=== PATIENT | female | born 1950 | race Caucasian/White ===

== ENCOUNTER → 2016-08-23 | Outpatient (CLI) | payer MEDICARE, BC ==
--- NOTE | 2016-08-23 15:37 | BD ---
EXAMINATION TYPE: MG DEXA axial skeleton. DATE OF EXAM: 08/23/2016 2:23 PM CLINICAL HISTORY: Height: 62.5 Weight: 147 FRAX RISK QUESTIONS: Alcohol (3 or more units per day): no Family History (Parent hip fracture): no Glucocorticoids (More than 3mos): no (Ex: prednisone, prednisolone, methylprednisolone, dexamethasone, and hydrocortisone). History of Fracture in Adulthood: yes Secondary Osteoporosis: 1. Type 1 Diabetes: no 2. Hyperthyroidism: no 3. Menopause before 45: no 4. Malnutrition: no 5. Chronic liver disease: no Rheumatoid Arthritis: no Current Tobacco Use: not now, quit about 1990 RISK FACTORS HISTORY OF: History of Wrist Fracture: yes When: 1996 Family History of Osteoporosis: not that patient is aware of Drink Alcohol: NO Active: yes Diet low in dairy products/other sources of calcium: no Postmenopausal woman: yes Take estrogen and/or progesterone medications: no Lost more than 2 inches in height since high school: no Frequent falls: no Poor Health: no Hyperparathyroidism: no Adrenal Insufficiency: no MEDICATIONS: Prednisone or other steroids: no Thyroid Medications: no Osteoporosis Medications: no Additional Medications: Vitamin D, blood pressure meds for heart rate Additional History: total knee replacement May 2016 EXAM MEASUREMENTS: Bone mineral densitometry was performed using the [employer] System. Bone mineral density as measured about the Lumbar spine is: ----- L1-L4(G/cm2): 0.906 T Score Values are as follows: ----- L2: -2.7 ----- L3: -2.0 ----- L4: -1.7 ----- L1-L4: -2.3 Bone mineral density has: Decreased -3.5% since study of: 05/29/2014 Bone mineral density about the R hip (g/cm2): 0.757 Bone mineral density about the L hip (g/cm2): 0.678 T Score values are as follows: -----R Neck: -2.0 -----L Neck: -2.6 -----R Total: -1.1 -----L Total: -1.9 Bone mineral density has: Decreased -7.0% since study of: 05/29/2014 IMPRESSION: Osteoporosis (T Score less than -2.5) as noted by T Score values at the L2 & Left hip There is increased fracture risk and therapy is usually indicated based on age. Re-Screen 1-2 years. NOTE: T-SCORE=SD OF THE YOUNG ADULT MEAN.
--- NOTE | 2016-08-25 09:50 | MM ---
Reason for exam: screening (asymptomatic). Last mammogram was performed 1 year and 2 months ago. History: Patient is postmenopausal and had first child at age 33. Family history of breast cancer in paternal cousin and breast cancer in paternal aunt at age 36. Benign cyst aspiration of the left breast. Physical Findings: A clinical breast exam by your physician is recommended on an annual basis and results should be correlated with mammographic findings. MG 3D Screening Mammo W/Cad Bilateral CC and MLO view(s) were taken. Prior study comparison: July 03, 2015, bilateral MG screening mammo w CAD. May 29, 2014, bilateral MG screening mammo w CAD. March 16, 2013, bilateral digital screening mammo w/CAD. The breast tissue is heterogeneously dense. This may lower the sensitivity of mammography. 6 o'clock left breast central nodular asymmetry not clearly seen previously. ASSESSMENT: Incomplete: need additional imaging evaluation, BI-RAD 0 RECOMMENDATION: Special view mammogram and ultrasound of the left breast. [facility] will attempt to contact patient to return for supplemental views and ultrasound. QUIANA
== END | disposition home or self-care (01) ==
LOC: RADMAMWWP 13:47
PROVIDERS: ATTEND Obstetrics & Gynecology
DX: Z12.31 Encounter for screening mammogram for malignant neoplasm of breast (principal); M81.0 Age-related osteoporosis without current pathological fracture; Z78.0 Asymptomatic menopausal state
CPT/HCPCS: 77080; 77063; G0202

== ENCOUNTER → 2016-09-03 | Outpatient (CLI) | payer MEDICARE, BC ==
--- NOTE | 2016-09-03 10:14 | MM ---
Reason for exam: additional evaluation requested from abnormal screening. Last mammogram was performed less than 1 month ago. History: Patient is postmenopausal and had first child at age 33. Family history of breast cancer in paternal cousin and breast cancer in paternal aunt at age 36. Benign cyst aspiration of the left breast. Physical Findings: Nurse did not find any significant physical abnormalities on exam. MG 3D Work Up W/Cad LT LM view(s) were taken of the left breast. Prior study comparison: August 23, 2016, bilateral MG 3d screening mammo w/cad. July 03, 2015, bilateral MG screening mammo w CAD. There are scattered fibroglandular densities. Finding: There is a 7.6 mm equal density (isodense), oval mass located 6 cm from the skin in the left breast. New finding since August 23, 2016 and July 03, 2015. These results were verbally communicated with the patient and result sheet given to the patient on 09/03/16. ASSESSMENT: Probably benign, BI-RAD 3 RECOMMENDATION: Follow-up diagnostic mammogram of the left breast in 6 months.
--- NOTE | 2016-09-03 10:16 | USB ---
Reason for exam: additional evaluation requested from abnormal screening. History: Patient is postmenopausal and had first child at age 33. Family history of breast cancer in paternal cousin and breast cancer in paternal aunt at age 36. Benign cyst aspiration of the left breast. US Breast Workup Limited LT Left breast ultrasound demonstrates a 0.5 x 0.4 x 0.4cm oval, cystic lesion at 6 o'clock. These results were verbally communicated with the patient and result sheet given to the patient on 09/03/16. ASSESSMENT: Probably benign, BI-RAD 3 RECOMMENDATION: Ultrasound of the left breast in 6 months.
== END | disposition home or self-care (01) ==
LOC: RADMAMWWP 08:40
PROVIDERS: ATTEND Obstetrics & Gynecology
DX: R92.8 Other abnormal and inconclusive findings on diagnostic imaging of breast (principal)
CPT/HCPCS: 76642; G0206; G0279

== ENCOUNTER → 2017-08-02 | Outpatient (CLI) | payer MEDICARE, BC ==
[2017-08-02 13:31] LABS: Calcium 9.8 mg/dL (8.4-10.2)
--- NOTE | 2017-08-02 14:57 | MR ---
EXAMINATION TYPE: MR brain wo/w con DATE OF EXAM: 08/02/2017 COMPARISON: MRI brain January 21, 2015 HISTORY: Malignant melanoma of skin of left foot TECHNIQUE: Multiplanar, multisequence images of the brain and brainstem is performed without and with IV contras t, utilizing 6.5 mL intravenous Gadavist . FINDINGS: Diffusion weighted images demonstrate no evidence of a recent infarct or other diffusion ab normality. There is no extra-axial fluid collection or significant white matter signal abnormality. Occasional focus of T2 hyperintensity in the white matter is redemonstrated, less than 6 lesions are seen. For reference there is 4 mm lesion left frontal lobe axial image 17 redemonstrated felt stable . The ventricular system and cisternal spaces are normal in size and appearance. The brain volume is age appropriate. Midline structures demonstrate normal morphology. The craniocervical junction appears within normal limits. Post contrast images demonstrate persistent enhancing left vestibulocochlear lesion axial im age 8 felt stable accounting for technical differences no new suspicious enhancing parenchymal lesion s are present. The dural venous sinuses appear patent. The visualized sinuses are clear and the globe s are intact. IMPRESSION: No new suspicious enhancing intraparenchymal lesions identified to suggest new metastatic disease to the brain. Stable small left-sided acoustic neuroma and minimal white matter changes like ly on basis of product of chronic small vessel ischemic change.
--- NOTE | 2017-08-02 16:05 | CT ---
EXAMINATION TYPE: CT ChestAbdPelvis w con DATE OF EXAM: 08/02/2017 COMPARISON: NONE HISTORY: 66-year-old female Malignant melanoma of skin on left foot. Metastatic lymph node to the lef t groin status post excision. TECHNIQUE: Contiguous axial scanning of the chest, abdomen, and pelvis performed with IV Contrast, pa tient injected with 100 mL of Isovue 300. Delayed images through the kidneys were obtained. Coronal/s agittal reconstructions performed. CT DLP: 618.60 mGycm Automated exposure control for dose reduction was used. FINDINGS: Chest: Heart is normal size without pericardial effusion. Aorta normal caliber with conventional arch vessel branching anatomy. No thoracic lymphadenopathy by CT size criteria. Evaluation of the lungs shows mild dependent atelectasis. There is a vague 1.4 cm groundglass nodule in the right upper lobe axial image 18 No consolidation or pleural effusion. ABDOMEN: No focal liver lesion or biliary ductal dilatation. Portal venous system is patent. Gallbladder, right adrenal gland, right kidney, spleen, and pancreas appear within normal limits. There is 1.4 cm nodularity of the left adrenal gland which is nonspecific. A couple punctate 2 mm nonobstructive calculi in the lower pole left kidney. Symmetric uptake and exc retion of contrast from both kidneys. The graft no dilated small bowel, free fluid, or free air. No m esenteric or retroperitoneal lymphadenopathy. Moderate stool burden without pericolonic inflammatory change. Redundant sigmoid colon. Mild atherosc lerotic calcifications within the abdominal aorta and iliac arteries. Tiny fatty umbilical hernia. Pelvis: Bladder urine distended. Uterus and small ovaries are are demonstrated. No pelvic lymphadenopathy see n. A 2.8 cm fluid collection in the left inguinal region with adjacent surgical clip. Nonspecific 6 mm n onenlarged left inguinal lymph node laterally and just superiorly to the fluid collection. Bones: Degenerative changes lumbar spine. No osseous destructive process. IMPRESSION: 1. POSTOPERATIVE LYMPHOCELE OR SEROMA IN THE LEFT GROIN MEASURING 2.8 CM. THERE IS A SMALL 6 MM LYMPH NODE JUST ADJACENT SUPERIORLY AND LATERALLY THAT IS NONSPECIFIC. 2. A VAGUE 1.4 CM GROUNDGLASS NODULE IN THE RIGHT UPPER LOBE IS ALSO NONSPECIFIC. THREE-MONTH FOLLOW- UP RECOMMENDED TO EXCLUDE THE POSSIBILITY OF METASTATIC DISEASE. 3. A 1.4 CM NODULE OF THE LEFT ADRENAL GLAND STATISTICALLY REPRESENTS A BENIGN ADRENAL ADENOMA. THIS SHOULD ALSO BE REASSESSED AT THE PATIENT'S THREE-MONTH FOLLOW-UP. 4. NO OTHER SUSPICIOUS FINDINGS TO SUGGEST METASTATIC DISEASE.
== END | disposition home or self-care (01) ==
LOC: RADMRIMAIN 12:44
PROVIDERS: ATTEND Surgery
DX: D33.3 Benign neoplasm of cranial nerves (principal); R90.89 Other abnormal findings on diagnostic imaging of central nervous system; D35.02 Benign neoplasm of left adrenal gland; C43.72 Malignant melanoma of left lower limb, including hip; Z98.890 Other specified postprocedural states
CPT/HCPCS: 80048; 71260; 74177; 36415; 70553; A9581; Q9967

== ENCOUNTER → 2017-09-19 | Outpatient (CLI) | payer MEDICARE, BC ==
--- NOTE | 2017-09-21 10:17 | MM ---
Reason for exam: screening (asymptomatic). Last mammogram was performed 1 year and 1 month ago. History: Patient is postmenopausal and had first child at age 33. Family history of breast cancer in paternal cousin and breast cancer in paternal aunt at age 36. Benign cyst aspiration of the left breast. Physical Findings: A clinical breast exam by your physician is recommended on an annual basis and results should be correlated with mammographic findings. MG 3D Screening Mammo W/Cad Bilateral CC and MLO view(s) were taken. Prior study comparison: September 03, 2016, left breast MG 3d work up w/cad LT. August 23, 2016, bilateral MG 3d screening mammo w/cad. The breast tissue is heterogeneously dense. This may lower the sensitivity of mammography. Benign appearing bilateral calcifications. No suspicious abnormality. No significant changes when compared with prior studies. ASSESSMENT: Benign, BI-RAD 2 RECOMMENDATION: Routine screening mammogram of both breasts in 1 year.
== END | disposition home or self-care (01) ==
LOC: RADMAMWWP 12:28
PROVIDERS: ATTEND Obstetrics & Gynecology
DX: Z12.31 Encounter for screening mammogram for malignant neoplasm of breast (principal)
CPT/HCPCS: 77063; 77067

== ENCOUNTER → 2018-08-22 | Outpatient (CLI) | payer MEDICARE ==
--- NOTE | 2018-08-22 14:20 | US ---
EXAMINATION TYPE: US pelvis complete transvag DATE OF EXAM: 08/22/2018 COMPARISON: Ct 08/02/2017 CLINICAL HISTORY: Left Pelvic Mass R19.09,R19.00 Left Pelvic mass. TECHNIQUE: Transabdominal sonographic images of the pelvis were acquired. Transvaginal sonographic i mages were medically necessary to better assess the following anatomy: Uterus Date of LMP: Around 1998 EXAM MEASUREMENTS: Uterus: 5.1 x 2.4 x 3.8 cm Endometrial Stripe: 0.2 cm Right Ovary: Not visualized Left Ovary: Not visualized 1. Uterus: Anteverted wnl 2. Endometrium: wnl 3. Right Ovary: Not visualized 4. Left Ovary: Not visualized 5. Bilateral Adnexa: Obscured by large amount of peristalsing bowel visualized bilaterally 6. Posterior cul-de-sac: wnl IMPRESSION: The adnexa and ovaries are obscured by a large amount of bowel. Uterus and endometrium ap pear within normal limits. No pelvic masses seen on the CT dated 08/02/2017.
== END | disposition home or self-care (01) ==
LOC: RADUSWWP 13:26
PROVIDERS: ATTEND Obstetrics & Gynecology
DX: R19.00 Intra-abdominal and pelvic swelling, mass and lump, unspecified site (principal)
CPT/HCPCS: 76830; 76856

== ENCOUNTER → 2019-04-26 | Outpatient (CLI) | payer MEDICARE ==
[2019-04-26 11:27] LABS: Basophils # (A) 0.1 k/uL (0-0.2); Basophils % (A) 2 %; Eosinophils # (A) 0.1 k/uL (0-0.7); Eosinophils % (A) 3 %; HCT 44.2 % (34.0-46.0); HGB 14.1 gm/dL (11.4-16.0); Lymphocytes # (A) 1.5 k/uL (1.0-4.8); Lymphocytes % (A) 39 %; MCH 30.8 pg (25.0-35.0); MCV 96.2 fL (80.0-100.0); Mean Platelet Volume 7.6; Monocytes # (A) 0.3 k/uL (0-1.0); Monocytes % (A) 7 %; Neutrophils # (A) 1.8 k/uL (1.3-7.7); Neutrophils % (A) 46 %; Platelet Count 284 k/uL (150-450); RBC 4.59 m/uL (3.80-5.40); WBC 3.9 k/uL (3.8-10.6)
[2019-04-26 16:38] LABS: African American GFR (CKD) 87.8 (60.0-200.0); Albumin 4.4 g/dL (3.80-4.90); Albumin/Globulin Ratio 2.44 (1.60-3.17); Anion Gap 7.5 mmol/L (4.00-12.00); BUN/Creat Ratio 23.75 Ratio (12.00-20.00); Calcium 10.3 mg/dL (8.7-10.3); Carbon Dioxide 27.5 mmol/L (21.6-31.8); Globulin 1.8 g/dL (1.6-3.3); Non-African American GFR(CKD) 75.8 (60.0-200.0); Potassium 4.3 mmol/L (3.5-5.5); Total Bilirubin 0.7 mg/dL (0.2-1.2); Total Protein 6.2 g/dL (6.2-8.2)
== END | disposition home or self-care (01) ==
LOC: LABWHC1 10:10
PROVIDERS: ATTEND Nurse Practitioner
DX: C43.72 Malignant melanoma of left lower limb, including hip (principal); C77.9 Secondary and unspecified malignant neoplasm of lymph node, unspecified; R91.8 Other nonspecific abnormal finding of lung field; Z85.820 Personal history of malignant melanoma of skin
CPT/HCPCS: 36415; 80053; 83615; 85025

== ENCOUNTER → 2019-05-01 | Outpatient (CLI) | payer MEDICARE ==
--- NOTE | 2019-05-01 15:01 | CT ---
EXAMINATION TYPE: CT chest w con DATE OF EXAM: 05/01/2019 COMPARISON: 08/02/2017 HISTORY: Abnormal findings on lung imaging CT DLP: 233.7 mGycm Automated exposure control for dose reduction was used. CONTRAST: CT scan of the chest is performed with IV Contrast, patient injected with 100 mL of Isovue 300. FINDINGS: LUNGS: Stable groundglass nodule right upper lobe measuring 1.4 cm versus 1.4 cm. No additional nodul es identified. No pleural effusion or volume loss. No infiltrate or mass. MEDIASTINUM: There are no greater than 1 cm hilar or mediastinal lymph nodes. No pericardial effusi on is seen. Thoracic aorta is of normal caliber. The heart is not enlarged. UPPER ABDOMEN: No significant abnormality appreciated. OTHER: No additional significant abnormality is seen. IMPRESSION: 1.Stable groundglass nodule right upper lobe measuring 1.4 cm versus 1.4 cm. Stability over a two-yea r timeframe should be documented radiographically.
== END | disposition home or self-care (01) ==
LOC: RADCTMAIN 13:26
PROVIDERS: ATTEND Surgery
DX: R91.1 Solitary pulmonary nodule (principal); C77.9 Secondary and unspecified malignant neoplasm of lymph node, unspecified; C43.72 Malignant melanoma of left lower limb, including hip; Z85.820 Personal history of malignant melanoma of skin
CPT/HCPCS: 71260; Q9967

== ENCOUNTER → 2019-10-25 | Outpatient (CLI) | payer MEDICARE ==
--- NOTE | 2019-11-01 09:42 | MM ---
Reason for exam: screening (asymptomatic). Last mammogram was performed 1 year and 1 month ago. History: Patient is postmenopausal and had first child at age 33. Family history of breast cancer in paternal cousin and breast cancer in paternal aunt at age 36. Benign cyst aspiration of the left breast. Physical Findings: A clinical breast exam by your physician is recommended on an annual basis and results should be correlated with mammographic findings. MG 3D Screening Mammo W/Cad Bilateral CC and MLO view(s) were taken. Prior study comparison: September 26, 2018, bilateral MG 3d screening mammo w/cad. September 19, 2017, bilateral MG 3d screening mammo w/cad. The breast tissue is heterogeneously dense. This may lower the sensitivity of mammography. No significant changes when compared with prior studies. ASSESSMENT: Negative, BI-RAD 1 RECOMMENDATION: Routine screening mammogram of both breasts in 1 year.
== END | disposition home or self-care (01) ==
LOC: RADMAMWWP 14:31
PROVIDERS: ATTEND Obstetrics & Gynecology
DX: Z12.31 Encounter for screening mammogram for malignant neoplasm of breast (principal)
CPT/HCPCS: 77063; 77067

== ENCOUNTER → 2020-12-02 | Outpatient (CLI) | payer MEDICARE ==
--- NOTE | 2020-12-02 17:45 | BD ---
EXAMINATION TYPE: Axial Bone Density DATE OF EXAM: 12/02/2020 COMPARISON: NONE CLINICAL HISTORY: Height: 5 FT 2 IN Weight: 158 FRAX RISK QUESTIONS: Alcohol (3 or more units per day): NO Family History (Parent hip fracture): NO Glucocorticoids (More than 3mos): NO (Ex: prednisone, prednisolone, methylprednisolone, dexamethasone, and hydrocortisone). History of Fracture in Adulthood: YES Secondary Osteoporosis: 1. Type 1 Diabetes: NO 2. Hyperthyroidism: NO 3. Menopause before 45: NO 4. Malnutrition: NO 5. Chronic liver disease: NO Rheumatoid Arthritis: NO Current Tobacco Use: FORMER RISK FACTORS HISTORY OF: History of Wrist Fracture: LEFT WRIST When: AGE 46 Family History of Osteoporosis: NO Active: YES Diet low in dairy products/other sources of calcium: NO Postmenopausal woman: AGE 49 Take estrogen and/or progesterone medications: NO Lost more than 2 inches in height since high school: YES MEDICATIONS: Additional Medications: METOPROLOL, Additional History: MELANOMA EXAM MEASUREMENTS: Bone mineral densitometry was performed using the [employer] System. Bone mineral density as measured about the Lumbar spine is: ----- L1-L4(G/cm2): 0.886 T Score Values are as follows: ----- L2: -3.1 ----- L3: -1.3 ----- L4: -2.4 ----- L1-L4: -2.5 Bone mineral density has: DECREASED -0.3 % since study of: 2018 Bone mineral density about the R hip (g/cm2): 0.730 Bone mineral density about the L hip (g/cm2): 0.673 T Score values are as follows: -----R Neck: -2.2 -----L Neck: -2.6 -----R Total: -1.4 -----L Total: -1.7 Bone mineral density has: INCREASED 0.5 % since study of: 2018 IMPRESSION: Osteopenia (T Score between -2.5 and -1). There is slightly increased risk of fracture and the patient may be considered for treatment. Re-Screen 2-5 years. NOTE: T-SCORE=SD OF THE YOUNG ADULT MEAN.
--- NOTE | 2020-12-03 13:59 | MM ---
Reason for exam: screening (asymptomatic). Last mammogram was performed 1 year and 1 month ago. History: Patient is postmenopausal, has history of other cancer at age 67, and had first child at age 33. Family history of breast cancer in paternal cousin and breast cancer in paternal aunt at age 36. Benign cyst aspiration of the left breast. Physical Findings: A clinical breast exam by your physician is recommended on an annual basis and results should be correlated with mammographic findings. MG 3D Screening Mammo W/Cad Bilateral CC and MLO view(s) were taken. Prior study comparison: October 25, 2019, bilateral MG 3d screening mammo w/cad. September 26, 2018, bilateral MG 3d screening mammo w/cad. The breast tissue is heterogeneously dense. This may lower the sensitivity of mammography. Stable benign calcifications. There is no discrete abnormality. No significant changes when compared with prior studies. ASSESSMENT: Benign, BI-RAD 2 RECOMMENDATION: Routine screening mammogram of both breasts in 1 year.
== END | disposition home or self-care (01) ==
LOC: RADMAMWWP 09:31
PROVIDERS: ATTEND Obstetrics & Gynecology
DX: Z12.31 Encounter for screening mammogram for malignant neoplasm of breast (principal); M85.89 Other specified disorders of bone density and structure, multiple sites; Z78.0 Asymptomatic menopausal state; Z85.820 Personal history of malignant melanoma of skin; Z80.3 Family history of malignant neoplasm of breast
CPT/HCPCS: 77063; 77067; 77080

== ENCOUNTER → 2021-12-03 | Outpatient (CLI) | payer MEDICARE ==
--- NOTE | 2021-12-04 08:36 | MM ---
Reason for Exam: Screening (asymptomatic). Last mammogram was performed 1 year(s) and 1 month(s) ago. Patient History: Menarche at age 10. First Full-Term at age 33. Late child-bearing (after 30). Postmenopausal. Other cancer, age 67. Benign Cyst Aspiration on the left side. Paternal cousin had breast cancer. Paternal aunt had breast cancer, age 36. Risk Values: Maren 5 year model risk: 2.6%. NCI Lifetime model risk: 7.2%. Prior Study Comparison: 09/03/2016 Left Diagnostic Mammogram, [facility]. 09/19/2017 Bilateral Screening Mammogram, [facility]. 09/26/2018 Bilateral Screening Mammogram, [facility] 10/25/2019 Bilateral Screening Mammogram, [facility]. 12/02/2020 Bilateral Screening Mammogram, [facility]. Tissue Density: There are scattered fibroglandular densities. Findings: Analyzed By CAD. Benign spherical calcifications are present bilaterally. No suspicious groups of microcalcifications, spiculated or lobular masses, architectural distortion or other secondary signs of malignancy are mammographically apparent. Overall Assessment: Benign, BI-RAD 2 Management: Screening Mammogram of both breasts in 1 year. A negative mammogram report should not preclude additional follow up of suspicious palpable abnormalities. Patient should continue monthly self breast exam. A clinical breast exam by your physician is recommended on an annual basis and results should be correlated with mammographic findings. Electronically signed and approved by: Alvino Nielson D.O. Radiologis
== END | disposition home or self-care (01) ==
LOC: RADMAMWWP 12:58
PROVIDERS: ATTEND Obstetrics & Gynecology
DX: Z12.31 Encounter for screening mammogram for malignant neoplasm of breast (principal); Z78.0 Asymptomatic menopausal state; Z80.3 Family history of malignant neoplasm of breast
CPT/HCPCS: 77063; 77067

== ENCOUNTER → 2022-12-07 | Outpatient (CLI) | payer MEDICARE ==
--- NOTE | 2022-12-07 21:33 | BD ---
EXAMINATION TYPE: Axial Bone Density DATE OF EXAM: 12/07/2022 CLINICAL HISTORY: 72 years old Female. ICD-10 CODE: M85.88 DISORDER OF BONE Height: 62 Weight: 147.8 FRAX RISK QUESTIONS: Alcohol (3 or more units per day): no Family History (Parent hip fracture): no Glucocorticoids (More than 3mos): no History of Fracture in Adulthood: yes Secondary Osteoporosis: 1. Type 1 Diabetes: no 2. Hyperthyroidism: no 3. Menopause before 45: no 4. Malnutrition: no 5. Chronic liver disease: no Rheumatoid Arthritis: no Current Tobacco Use: no RISK FACTORS HISTORY OF: Hip Fracture (Right/Left): no Spine Fracture: no History of Wrist Fracture: Lt Wrist When: age 47 Surgery to Spine/Hip(right/left)/Wrist (right/left): no Family History of Osteoporosis: no Active: yes Diet low in dairy products/other sources of calcium: yes Postmenopausal woman: yes Take estrogen and/or progesterone medications: no Lost more than 2 inches in height since high school: yes Frequent falls: no Poor Health: no Hyperparathyroidism: no Adrenal Insufficiency: no MEDICATIONS: Prednisone or other steroids: no Thyroid Medications: no Osteoporosis Medications: no Additional Medications: BP Meds, Vit D, Fish Oil., Magnesium, Potassium, Additional History: EXAM MEASUREMENTS: Bone mineral densitometry was performed using the [employer] System. Bone mineral density as measured about the Lumbar spine is: ----- L1-L4(G/cm2): 0.837 T Score Values are as follows: ----- L1: -3.3 ----- L2: -3.0 ----- L3: -1.9 ----- L4: -3.4 ----- L1-L4: -2.9 Z Score Values are as follows: ----- L1: -1.7 ----- L2: -1.3 ----- L3: -0.2 ----- L4: -1.7 ----- L1-L4: -1.2 Bone mineral density has: decreased -5.5 % since study of: 12/02/2020 Bone mineral density about the R hip (g/cm2): 0.794 Bone mineral density about the L hip (g/cm2): 0.758 T Score values are as follows: -----R Neck: -2.5 -----L Neck: -2.6 -----R Total: -1.7 -----L Total: -2.0 Z Score values are as follows: -----R Neck: -0.8 -----L Neck: -0.9 -----R Total: -0.2 -----L Total: -0.4 Bone mineral density has: decreased -4.3 % since study of: 12/02/2020 FRAX%s: The graph provided illustrates a 25.3% chance for a major osteoporotic fx and a 7.4% chance f or the hips probability for fx in 10 years time. IMPRESSION: Osteoporosis (T Score less than -2.5). There is increased fracture risk and therapy is usually indicated based on age. Re-Screen 1-2 years. NOTE: T-SCORE=SD OF THE YOUNG ADULT MEAN.
--- NOTE | 2022-12-08 13:09 | MM ---
Reason for Exam: Screening (asymptomatic). Last screening mammogram was performed 12 month(s) ago. Patient History: Menarche at age 10. First Full-Term at age 33. Late child-bearing (after 30). Postmenopausal. Other cancer, age 67. Benign Cyst Aspiration on the left side. Paternal cousin had breast cancer. Paternal aunt had breast cancer, age 36. Paternal cousin had breast cancer at or over age 50. Paternal cousin had breast cancer at or over age 50. Risk Values: Maren 5 year model risk: 2.7%. NCI Lifetime model risk: 6.9%. Prior Study Comparison: 08/23/2016 Bilateral Screening Mammogram, [facility]. 09/03/2016 Left Diagnostic Mammogram, [facility]. 09/19/2017 Bilateral Screening Mammogram, [facility]. 09/26/2018 Bilateral Screening Mammogram, [facility]. 10/25/2019 Bilateral Screening Mammogram, [facility]. 12/02/2020 Bilateral Screening Mammogram, [facility]. 12/03/2021 Bilateral MG 3D screening mammo w/cad, [facility]. Tissue Density: The breast tissue is heterogeneously dense. This may lower the sensitivity of mammography. Findings: Analyzed By CAD. Pattern appears symmetrical. Benign scattered calcifications are present bilaterally. No significant interval change is evident. No suspicious groups of microcalcifications, spiculated or lobular masses, architectural distortion or other secondary signs of malignancy are mammographically apparent. Overall Assessment: Benign, BI-RAD 2 Management: Screening Mammogram of both breasts in 1 year. A negative mammogram report should not preclude additional follow up of suspicious palpable abnormalities. Patient should continue monthly self breast exam. A clinical breast exam by your physician is recommended on an annual basis and results should be correlated with mammographic findings. Electronically signed and approved by: Alvino Nielson D.O. Radiologis
== END | disposition home or self-care (01) ==
LOC: RADMAMWWP 13:00
PROVIDERS: ATTEND Obstetrics & Gynecology
DX: Z12.31 Encounter for screening mammogram for malignant neoplasm of breast (principal); M81.0 Age-related osteoporosis without current pathological fracture; M85.89 Other specified disorders of bone density and structure, multiple sites; Z78.0 Asymptomatic menopausal state; Z80.3 Family history of malignant neoplasm of breast
CPT/HCPCS: 77063; 77067; 77080

== ENCOUNTER → 2023-07-27 | Outpatient (CLI) | payer MEDICARE ==
--- NOTE | 2023-07-27 14:47 | US ---
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 Bilateral ureteral jets are seen. exam limited by bowel IMPRESSION: 1. There is a small hypoechoic lesion which does not meet the criteria of a simple cyst measuring 2.2 cm upper pole right kidney. Not seen on the previous CT scan of 2018. Recommend follow-up CT of the abdomen for further assessment. 2. No hydronephrosis. There is a 4 mm nonobstructing left renal stone. 3. There is a small amount of debris in the bladder which could be postinfectious correlate with urin alysis.
== END | disposition home or self-care (01) ==
LOC: RADUSWWP 13:39
PROVIDERS: ATTEND Urology
DX: N20.0 Calculus of kidney (principal); N30.21 Other chronic cystitis with hematuria
CPT/HCPCS: 76770

== ENCOUNTER → 2024-01-27 | Outpatient (CLI) | payer MEDICARE ==
--- NOTE | 2024-01-30 10:14 | MM ---
Reason for Exam: Screening (asymptomatic). Last mammogram was performed 1 year(s) and 1 month(s) ago. Patient History: Menarche at age 10. First Full-Term at age 33. Late child-bearing (after 30). Postmenopausal. Other cancer, age 67. Benign Cyst Aspiration on the left side. Paternal cousin had breast cancer. Paternal aunt had breast cancer, age 36. Paternal cousin had breast cancer at or over age 50. Paternal cousin had breast cancer at or over age 50. Risk Values: Maren 5 year model risk: 2.7%. NCI Lifetime model risk: 6.5%. Prior Study Comparison: 12/02/2020 Bilateral Screening Mammogram, [facility]. 12/03/2021 Bilateral MG 3D screening mammo w/cad, [facility]. 12/07/2022 Bilateral MG 3D screening mammo w/cad, [facility]. Tissue Density: The breasts are heterogeneously dense, which may obscure small masses. Findings: Analyzed By CAD. Right breast: There is no suspicious group of microcalcifications or new suspicious mass. Benign-appearing calcifications right breast. Left breast: There is no suspicious group of microcalcifications or new suspicious mass. Benign-appearing calcifications left breast. Overall Assessment: Benign, BI-RAD 2 Management: Screening Mammogram of both breasts in [address] [facility] will attempt to contact patient to return for supplemental views and ultrasound if indicated. Patient should continue monthly self-breast exams. A clinical breast exam by your physician is recommended on an annual basis. This exam should not preclude additional follow-up of suspicious palpable abnormalities. Note on Maren scores and lifetime risk: 1. A Maren score greater than 3% is considered moderate risk. If this is the case, consider specialist referral to assess eligibility for a risk reducing agent. 2. If overall lifetime risk for the development of breast cancer is 20% or higher, the patient may qualify for future screening with alternating mammogram and breast MRI. [facility], , 01/30/2024 10:11 AM. Electronically signed and approved by: Gurinder Kapoor DO
== END | disposition home or self-care (01) ==
LOC: RADMAMWWP 12:30
PROVIDERS: ATTEND Family Medicine
CPT/HCPCS: 77063; 77067

== ENCOUNTER → 2024-04-10 | Outpatient (CLI) | payer MEDICARE ==
[2024-04-10 10:21] LABS: African American GFR (CKD) 89 (>60 ml/min/1.73 sqM); Blood Urea Nitrogen 17 mg/dL (7-17); Non-African American GFR(CKD) 77 (>60 ml/min/1.73 sqM)
--- NOTE | 2024-04-10 15:06 | CT ---
EXAMINATION TYPE: CT abdomen pelvis wo/w con DATE OF EXAM: 04/10/2024 HISTORY: renal cyst CT DLP: 708.00mGycm Automated Exposure Control for Dose Reduction was Utilized. CONTRAST: CT scan of the abdomen and pelvis is performed without oral and without and with IV Contrast, patient injected with 100 mL of Isovue 300. COMPARISON: Ultrasound kidneys July 27, 2023. Prior CT 2018. FINDINGS: LUNG BASES: No significant abnormality is appreciated. LIVER/GB: No significant abnormality is appreciated. PANCREAS: No significant abnormality is seen. SPLEEN: No significant abnormality is seen. ADRENALS: No significant abnormality is seen. KIDNEYS: Noncontrast images show a 4 mm calculus lower pole collecting system coronal image 45. Postc ontrast images show symmetric cortical medullary uptake and excretion without hydronephrosis seen bessie aterally. No concerning solid or cystic renal mass is identified bilaterally with particular attentio n to the upper pole of the right kidney at the area of clinical concern on the most recent ultrasound . BOWEL: Suboptimal evaluation without enteric contrast and patient having little internal fat. No abno rmal small or large bowel dilatation. Moderate to severe diffuse colonic fecal prominence is noted UTERUS/ADNEXA: No gross abnormality seen. LYMPH NODES: No greater than 1cm abdominal or pelvic lymph nodes are appreciated. OSSEOUS STRUCTURES: Scoliotic curvature is seen. Multilevel vacuum disc phenomenon and disc space colt rowing in the lumbar spine is seen. 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 OTHER: Mild to moderate peripheral plaque of the aorta extends into branch vessels. IMPRESSION: 1. No concerning renal mass. 2. Nonobstructing 4 mm calculus lower pole left kidney is felt present. 3. No bowel obstruction. Moderate to severe diffuse colonic fecal stasis or constipation. 4. 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
== END | disposition home or self-care (01) ==
LOC: RADCTMAIN 09:29
PROVIDERS: ATTEND Urology
DX: N20.0 Calculus of kidney (principal); N28.1 Cyst of kidney, acquired; N28.89 Other specified disorders of kidney and ureter; M87.88 Other osteonecrosis, other site
CPT/HCPCS: 82565; 84520; 74178; 36415; Q9967

== ENCOUNTER → 2024-10-19 | Outpatient (CLI) | payer MEDICARE ==
[2024-10-19 15:28] LABS: ALT 22 U/L (8-44); AST 28 U/L (13-35); Cholesterol 260.00 mg/dL (0.00-200.00); HDL Cholesterol 90.10 mg/dL (40.00-60.00); LDL Cholesterol,Calculated 157.7 mg/dL (0.0-131.0); Triglycerides 60.90 mg/dL (0.00-149.00); VLDL Calculation 12.18 mg/dL (5.00-40.00)
== END | disposition home or self-care (01) ==
LOC: LABWHC1 09:05
PROVIDERS: ATTEND Internal Medicine Interventional Cardiology
DX: E78.2 Mixed hyperlipidemia (principal)
CPT/HCPCS: 36415; 80061; 84450; 84460